=== PATIENT | female | born 1980 | race Caucasian/White ===

== ENCOUNTER 2018-07-24 13:50 | Emergency (ER) | payer OTHER ==
--- NOTE | 2018-07-24 14:09 | PDOC ---
Rapid Medical Evaluation Chief Complaint: Back Pain Time Seen by Provider: 07/24/18 14:08 Medical Evaluation: Allergies Allergy/AdvReac Type Severity Reaction Status Date / Time No Known Allergies Allergy Verified 07/24/18 14:05 07/24/18 14:12 c/o mid back pain since last night. pain since Friday PE: patient alert ox3. + midline tenderness A: back pain P: ua urine xray patient to the ER for further management of care. Discharge Disposition - Diagnosis Back pain Qualifiers: Back pain location: thoracic back pain Chronicity: acute Back pain laterality: midline Qualified Code(s): M54.6 - Pain in thoracic spine - Referrals - Patient Instructions - Post Discharge Activity
[2018-07-24 14:12] VITALS: BP 128/83; PULSE 113; TEMP 99; BMI 18.9
[2018-07-24 15:05] LABS: HCG,QUALITATIVE URINE Negative
--- NOTE | 2018-07-24 15:09 | PDOC ---
History of Present Illness - General Chief Complaint: Back Pain Stated Complaint: BACK PAIN Time Seen by Provider: 07/24/18 14:08 History Source: Patient Exam Limitations: No Limitations - History of Present Illness Initial Comments: 07/24/18 15:16 Patient came for evaluation of worsening and exquisite pain to left lower chest wall. States last week suffered from a severe upper respiratory infection with significant and severe coughing. States on Friday had onset of left lower chest wall pain, worse with inspiration. Yesterday while stuck in car in traffic for 6 hours had a worsened an escalation of pain where today woke up and is tearful. Unable to move, lift left arm and states pain radiates up to shoulder and into left side of her neck with movement. Denies chest pain or palpitations , denies any fever currently or cough. Occurred: reports: last week Severity: reports: moderate, severe Pain Location: reports: back, chest Method of Injury: Yes: unknown Associated Symptoms (Fall): denies symptoms, chest pain Past History - Travel Traveled outside of the country in the last 30 days: No Close contact w/someone who was outside of country & ill: No - Past Medical History Allergies/Adverse Reactions: Allergies Allergy/AdvReac Type Severity Reaction Status Date / Time No Known Allergies Allergy Verified 07/24/18 14:05 Home Medications: Ambulatory Orders Cyclobenzaprine HCl 10 mg PO Q8H PRN #14 tablet 07/24/18 Naproxen [Naprosyn -] 500 mg PO BID #30 tablet 07/24/18 COPD: No Other medical history: DENIES. - Suicide/Smoking/Psychosocial Hx Smoking History: Never smoked Review of Systems - Review of Systems Able to Perform ROS?: Yes Is the patient limited Korean proficient: Yes Constitutional: Yes: Symptoms Reported, See HPI HEENTM: Yes: See HPI. No: Symptoms Reported Respiratory: Yes: See HPI. No: Symptoms reported, Cough Cardiac (ROS): No: Symptoms Reported Musculoskeletal: Yes: Symptoms Reported, See HPI, Back Pain, Muscle Pain Integumentary: Yes: See HPI. No: Symptoms Reported, Bruising All Other Systems: Reviewed and Negative *Physical Exam - Vital Signs Last Vital Signs Temp Pulse Resp BP Pulse Ox 99 F 113 H 19 128/83 99 07/24/18 14:05 07/24/18 14:05 07/24/18 14:05 07/24/18 14:05 07/24/18 14:05 - Physical Exam General Appearance: Yes: Nourished, Appropriately Dressed, Apparent Distress, Mild Distress HEENT: positive: MIR[place]DE, Normal ENT Inspection, TMs Normal, Pharynx Normal. negative: Rhinorrhea Neck: positive: Tender, Supple (some mild tenderness along the paravertebral spinous muscle along left side of neck. Has no true C-spine pain, crepitus or step-offs. Range of motion is limited as to the right reproduces the pain along the upper back musculature.) Respiratory/Chest: positive: Chest Tender (has exquisite point tenderness along midclavicular line extending to mid axillary line of left chest wall at ribs 8 and 9, 10), Lungs Clear, Normal Breath Sounds (but difficult to take a deep inspiration secondary to exquisite pain in the left lower chest wall.) Cardiovascular: positive: Regular Rhythm Gastrointestinal/Abdominal: positive: Normal Bowel Sounds, Soft. negative: Tender Musculoskeletal: positive: Normal Inspection, Muscle Spasm. negative: CVA Tenderness, Vertebral Tenderness Extremity: positive: Normal Inspection. 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 *DC/Admit/Observation/Transfer Diagnosis at time of Disposition: Back pain Qualifiers: Back pain location: thoracic back pain Chronicity: acute Back pain laterality: midline Qualified Code(s): M54.6 - Pain in thoracic spine - Discharge Dispostion Disposition: HOME Condition at time of disposition: Stable Decision to Admit order: No - Referrals - Patient Instructions Printed Discharge Instructions: DI for Muscle Strain Additional Instructions: Drink lots of fluids: Teas, water, soups, Pedialyte Saltwater gargles Steamy showers/seem to face break up mucus Avoid contact with others until fevers and cough resolved Lots of handwashing and good hygiene Rest, no heavy lifting or exercise until pain is resolved Hot soaks to neck and low back as often as possible/hot showers or Jacuzzis No massage or therapy until spasm is gone Continue Naprosyn 500 mg tablet, 1 tablet every 12 hours for the next 3 days then as needed for pain and swelling Cyclobenzaprine 1-10mg every 8 hours as needed for spasm If not significant improvement within 24 hours with medication and rest regime, followup with private physician for change in medications and /or therapy. - Post Discharge Activity Forms/Work/School Notes: Back to Work
[2018-07-24] MEDS ORDERED: KETOROLAC TROMETHAMINE 60 MG/2 ML VIAL IM ONE (15:10)
[2018-07-24 15:16] LABS: URINE APPEARANCE CLEAR; URINE BILIRUBIN NEGATIVE (<2.0 mg/dL); URINE COLOR LTYELLOW; URINE GLUCOSE (UA) NEGATIVE (NEGATIVE); URINE KETONE NEGATIVE (NEGATIVE); URINE LEUK ESTERASE NEGATIVE (NEGATIVE); URINE NITRITE NEGATIVE (NEGATIVE); URINE PROTEIN NEGATIVE (NEGATIVE); URINE UROBILINOGEN NEGATIVE mg/dL (0.2-1.0)
[2018-07-24] MEDS ORDERED: KETOROLAC TROMETHAMINE 60 MG/2 ML VIAL ONE (15:22)
[2018-07-24 15:36] LABS: EPI CELLS RARE /HPF (FEW)
[2018-07-24] MEDS ORDERED: CYCLOBENZAPRINE HCL 10 MG TABLET (FP) ONE (16:25)
[2018-07-24] MEDS ORDERED: CYCLOBENZAPRINE HCL 10 MG TABLET (FP) PO ONE (16:29)
== END 2018-07-24 16:47 | disposition home or self-care (01) ==
LOC: JERFT 13:50
PROC: 3E0233Z Introduction of Anti-inflammatory into Muscle, Percutaneous Approach (ICD-10-PCS; principal; 2018-07-24)
DX: M54.6 Pain in thoracic spine (principal)
CPT/HCPCS: 71101-TC-FY; 81003; 81015; 84703; 87086; 99281-25